=== PATIENT | male | born 1965 | race African-American/Black ===

== ENCOUNTER 2019-05-29 15:02 | Inpatient (IN) | payer MEDICAID, OTHER ==
[~2019-05-29] VITALS: Ht 185.4 cm; Wt 110.0 kg
[2019-05-29] MEDS ORDERED: SODIUM CHLORIDE 0.9% 1,000 ML IVB ONE (16:46)
[2019-05-29] MEDS ORDERED: CLINDAMYCIN 900MG IV 50 ML IV ONE (17:00)
[2019-05-29] MEDS ORDERED: VANCOMYCIN 1GM/250ML 250 ML IV ONE (17:00)
[2019-05-29 17:36] LABS: Basophils # (auto) 0 uL; Basophils % (auto) 0.3 % (0.0-2.0); Eosinophils # (auto) 0 uL; Lymphocytes # (auto) 1.1 uL; Red Cell Distribution Width 19.3 % (11.8-14.3)
[2019-05-29 17:39] LABS: Eosinophils % (auto) 0.1 % (0.0-7.0); Hematocrit 20.7 % (41.0-53.0); INR 1.06 (0.9-1.15); Lymphocytes % (auto) 8.8 % (10.0-50.0); Mean Corpuscular Hemoglobin 24.2 pg (28.0-32.0); Mean Corpuscular Hgb Conc. 30.7 g/dL (32.0-36.0); Mean Corpuscular Volume 78.9 fL (80.0-100.0); Monocytes % (auto) 8.1 % (0.0-12.0); Neutrophils # (auto) 10.5 uL; Neutrophils % (auto) 82.7 % (37.0-80.0); Platelet Count (auto) 492 10^3/uL (140-450); Red Blood Cells 2.62 10^6/uL (4.5-5.90); White Blood Cell 12.7 10^3/uL (4.4-10.8)
[2019-05-29 17:52] LABS: Hemoglobin 6.4 g/dL (13.5-17.5)
[2019-05-29 18:04] LABS: Albumin 1.9 g/dL (3.4-5.0); Calcium 8.2 mg/dL (8.5-10.1); Magnesium 2.1 mg/dL (1.6-2.6); Potassium 3.6 mmol/L (3.5-5.1)
[2019-05-29 18:12] LABS: BUN/Creatinine Ratio 10.3; Bilirubin, Total 0.4 mg/dL (0.2-1.0); CRP High Sensitivity 12.3 mg/dL (< 0.3)
[2019-05-29] MEDS ORDERED: DEXTROSE (50%) 50ML SYRG IV PRN (21:15)
[2019-05-29] MEDS ORDERED: VANCOMYCIN PER PHARMACY 0 MG IV SCH (21:15)
[2019-05-29] MEDS ORDERED: ONDANSETRON HCL 4 MG/2 ML VIAL IV PRN (21:15)
[2019-05-29] MEDS ORDERED: TEMAZEPAM 15 MG CAP PO PRN (21:15)
[2019-05-29] MEDS ORDERED: HYDROcodone-ACET 5/325MG TAB PO PRN (21:15)
[2019-05-29] MEDS: cloNIDine HCL 0.1 MG TAB PO PRN ×2 (22:59→23:09)
[2019-05-29] MEDS: FAMOTIDINE 20 MG TAB PO SCH (23:08)
[2019-05-29 23:38] LABS: Lactic Acid w/Reflex 2.1 mmol/L (0.4-2.0)
[2019-05-30] VITALS (11 sets, daily range): BP systolic 117–148; BP diastolic 63–97
[2019-05-30] MEDS: ACETAMINOPHEN 325 MG TAB PO PRN ×2 (01:00→20:26)
--- NOTE | 2019-05-30 01:10 | NUR ---
RECEIVED PATIENT FROM ER. REPORT RECEIVED FROM MATT ESCALONA. PATIENT SHOWING NO SIGN OF DISTRESS, SHORTNESS OF BREATH, AND PATIENT DENIES ANY PAIN AT THIS TIME. NEW IV STARTED IN LEFT HAND 22 GAUGE. LAB AT BEDSIDE AND LACTIC ACID DRAWN. BLOOD TRANSFUSION CONSENT SIGNED AT THIS TIME. BP ELEVATED AT 161/77. TEMP IS 100.5 HEART RATE IS 105. WILL ATTEMPT TO STABILIZE VITALS PRIOR TO BLOOD TRANSFUSION. EDUCATED PATIENT ON POC. PATIENT VERBALIZED UNDERSTANDING. BED LOWERED, CALL LIGHT WITHIN REACH, AND PATIENT WILL BE ROUNDED ON EVERY HOUR AND NEEDED.
--- NOTE | 2019-05-30 01:45 | NUR ---
CONTACTED HOSPITALIST RECEIVED SIGNATURE FOR BLOOD TRANSFUSION. REQUESTED ADDITIONAL MEDICATION FOR PATIENT'S ELEVATED BP OF 161/77. ORDERS RECEIVED. WILL PLACE ORDERS. WILL CONTINUE TO MONITOR PATIENT AT THIS TIME.
[2019-05-30] MEDS ORDERED: AML5T PO (01:52)
[2019-05-30] MEDS ORDERED: METF-370 PO (01:52)
[2019-05-30] MEDS ORDERED: METO-169 PO (01:52)
[2019-05-30] MEDS ORDERED: CLON0.1T PO (01:52)
--- NOTE | 2019-05-30 02:00 | NUR ---
PATIENT AT THIS TIME REFUSING DRESSING CHANGE ATTEMPTED TO REMOVE DRESSINGS AND TAKE WOUND CARE PHOTOS. PATIENT AT THIS TIME REFUSING STATING THAT IT HURTS AND WANTS IT LEFT ALONE. WILL ATTEMPT AT ANOTHER TIME.
--- NOTE | 2019-05-30 05:00 | NUR ---
DRESSING CHANGE PERFORMED WOUND CARE PHOTOS TAKEN AND CULTURE SWABS OBTAINED. DRESSINGS CHANGED AND PLACED WITH ABDOMINAL PADS AND KERLEX. PATIENT TOLERATED WELL. WILL CONTINUE TO MONITOR. WOUND CONSULT ALREADY IN PLACE. WILL INFORM DAYSHIFT RN.
[2019-05-30] MEDS: InsuLIN REG 1unit/0.01ml Soln (100units/ml) SC SCH ×5 (06:00→23:24)
[2019-05-30] MEDS: ACCU-CHEK COMFORT CURVE STRIP VI SCH ×5 (06:16→23:24)
[2019-05-30] MEDS: VANCOMYCIN 750mg/250ml 250 ML IV SCH ×2 (06:16→18:09)
--- NOTE | 2019-05-30 07:15 | NUR ---
Opening Shift Note Assumed care of patient, awake and alert. No S/S of distress/SOB or pain. Instructed on POC and to call for assist PRN, will continue to monitor for changes Q1hr and PRN. Bed set in lowest locked position with side rails up x 2 for safety and call light within reach.
--- NOTE | 2019-05-30 08:48 | NUR ---
LOGGING OPERATIONS INSPECTOR at bedside Angelica Blount, updated pt on POC, patient verbalized understanding.
[2019-05-30] MEDS: FAMOTIDINE 20 MG TAB PO SCH (09:14)
[2019-05-30] MEDS: cefTRIAXone 1GM/50ML D5W 50 ML IV SCH (09:14)
[2019-05-30 09:43] LABS: Hematocrit 21.6 % (41.0-53.0); Mean Corpuscular Hemoglobin 24.9 pg (28.0-32.0); Mean Corpuscular Hgb Conc. 31.3 g/dL (32.0-36.0); Mean Corpuscular Volume 79.7 fL (80.0-100.0); Platelet Count (auto) 401 10^3/uL (140-450); Red Blood Cells 2.71 10^6/uL (4.5-5.90); Red Cell Distribution Width 19.4 % (11.8-14.3); White Blood Cell 21.9 10^3/uL (4.4-10.8)
[2019-05-30 09:52] LABS: Hemoglobin 6.7 g/dL (13.5-17.5)
[2019-05-30 09:54] LABS: Basophils % (manual) 0 (0.0-2.0); Blast Cells 0; Eosinophils % (manual) 0 (0-7); Metamyelocytes % 0; Monocytes % (manual) 0 (0-12); Myelocytes % 0; Promyelocytes % 0; Reactive Lymphocytes 0
[2019-05-30 10:00] LABS: Albumin 1.6 g/dL (3.4-5.0); BUN/Creatinine Ratio 8.9; Calcium 7.2 mg/dL (8.5-10.1); Potassium 3.8 mmol/L (3.5-5.1)
[2019-05-30] MEDS ORDERED: ASPirin 81 mg TAB PO SCH (10:00)
[2019-05-30 10:05] LABS: Total Protein 6.8 g/dL (6.4-8.2)
[2019-05-30] MEDS: FUROSEMIDE 20 MG/2 ML VIAL IV SCH (10:32)
[2019-05-30] MEDS: METOPROLOL TARTRATE 25 MG TAB PO SCH ×2 (10:33→21:50)
[2019-05-30] MEDS: amLODIPine BESYLATE 5 MG TAB PO SCH (10:33)
[2019-05-30 12:07] LABS: Band Neutrophils % (manual) 1; Lymphocytes % (manual) 9 (10.0-50.0)
[2019-05-30 12:25] LABS: Urine WBC None Seen /hpf (0 - 3)
[2019-05-30 12:38] LABS: Urine Bacteria NONE SEEN /hpf (None Seen); Urine Blood Negative /uL (Negative); Urine Specific Gravity 1.007 (1.001-1.035)
[2019-05-30 13:02] LABS: Alcohol, Urine < 3.0 mg/dL (0-5); Amphetamine Screen, Urine NEGATIVE (NEGATIVE); Barbiturate Scree,Urine NEGATIVE (NEGATIVE); Benzodiazephine Screen, Urine NEGATIVE (NEGATIVE); Cannabinoid Screen, Urine NEGATIVE (NEGATIVE); Cocaine Screen, Urine NEGATIVE (NEGATIVE); Opiate Scree,Urine NEGATIVE (NEGATIVE); Phencyclidine Screen, Urine NEGATIVE (NEGATIVE)
--- NOTE | 2019-05-30 13:08 | NUR ---
WOUND CARE NOTE: Wound Care in to see patient per wound care request regarding "bilateral leg wounds" that are noted present on admission. Bedside nurse took photograph of patient's wounds upon admission for reference. Patient is 54 years old male with admitting diagnosis of Bilateral Infected Leg wounds. Patient with history of DM. Patient is resting in bed in Rm. 274A. He's awake, alert and oriented. He's in no stated pain at this time, however reports of pain to BLE wounds when touched. He's able to assist in turning and repositioning. Skin/wound assessment done with the assistance of orienting nurse, POLA Jaimes. Noted Rt. ([id number]) and Lt ([id number]) has large open, draining wounds. Wounds are in whole lower leg and larger to lateral and medial area. Anterior distal Rt lower leg wound has visible tendon. Wound beds are pale pink with yellow slough, dark red periwound, moderate seropurulent drainage noted with foul odor noted. Wound culture specimen reported sent to lab and in process. Patient reported that wound started "since July or August" but admitted to not seeing a doctor for it [facility] Cleansed BLE wounds with wound cleanser,patted dry with gauze, applied Thera honey gel/honey gauze, applied petrolatum gauze to exposed tendon to anterior distal Rt lower leg wound, covered with Opti lock and absorbent pads, wrapped with Kerlix and secured with tape. Patient tolerated well. Patient turned to his side to visualize sacrum and back, no pressure injury noted. Patient's education given regarding skin/ wound care, wound healing and skin protection measures. Patient verbalized understanding. Repositioned patient for comfort. Patient has pending surgical consult for BLE wounds. RECOMMENDATION: Daily/PRN dressing change to BLE wound per MD order, dietary consult,surgical consult, frequent turning and repositioning schedule as condition permits, redistribute pressure points with pillows, elevate BLE on pillows to help offload pressure, continue monitoring by wound care while patient is hospitalized. Addendum: 05/30/19 at 1715 by Dona Faulkner RN Amended: Links added.
--- NOTE | 2019-05-30 14:18 | NUR ---
MD at bedside Dr. Baird, updated pt on POC. MD aware of HGB 6.7.
[2019-05-30 15:07] LABS: % Iron Saturation 5.9 % (20-55)
--- NOTE | 2019-05-30 18:20 | NUR ---
Paged MD for change of isolation status. Awaiting call back, patient is positive for MRSA in nares.
--- NOTE | 2019-05-30 18:52 | NUR ---
New orders received from MD ALMAGUER, Dr. Baird, ordered Bactroban to be administered to both nares for 5 days.
--- NOTE | 2019-05-30 19:08 | NUR ---
Endorsed care to NOC RN.
--- NOTE | 2019-05-30 19:45 | NUR ---
PAGED DR. HERBERT. PT Hg IS AT 6.7 AFTER 1 UNIT FO BLOOD. Hg WAS AT 6.4. LEFT MESSAGE TO INFORM AND CALL BACK. AWAITING CALL BACK. NOTIFIED CHARGE, POLA SAUNDERS.
--- NOTE | 2019-05-30 21:30 | NUR ---
TALKED TO DR. SANDOVAL. NEW ORDER FOR 1 UNIT PACKED RED BLOOD CELLS.
[2019-05-30] MEDS: MUPIROCIN 2% OINT 15gm or 22gm EACHNOSTRI SCH (21:50)
[2019-05-30] MEDS: PANTOPRAZOLE 40 MG TAB PO SCH (21:51)
--- NOTE | 2019-05-30 21:51 | NUR ---
PT REFUSING MEDICATION AT THIS TIME. PT STATED HE "WAS NOT GOING TO TAKE ANY MEDICATION" I EDUCATED ON THE NEED FOR IT. PT VERBALIZED UNDERSTANDING. WILL CONTINUE TO MONITOR.
--- NOTE | 2019-05-30 21:52 | NUR ---
IRON CARRIER CALLED. PT HAD RUN OF RVR. PT ASYMPTOMATIC. BP 139/85, HR 86, 98%. PER DAY SHIFT HE HAD A RUN DURING THE DAY AND THEY SAID MD IS AWARE. WILL CONTINUE TO MONITOR.
--- NOTE | 2019-05-30 23:58 | NUR ---
BLOOD TRANSFUSION STARTED. PT VITAL SIGNS BP 129/90, HR 84, RR18, O2 99%. WILL CONTINUE TO MONITOR.
[2019-05-31] VITALS (7 sets, daily range): BP systolic 119–152; BP diastolic 71–91
--- NOTE | 2019-05-31 01:55 | NUR ---
BLOOD TRANSFUSION COMPLETED. NO REACTION NOTED.
[2019-05-31] MEDS: ACETAMINOPHEN 325 MG TAB PO PRN ×2 (03:50→15:06)
[2019-05-31 05:25] LABS: Basophils # (auto) 0 uL; Basophils % (auto) 0.2 % (0.0-2.0); Eosinophils # (auto) 0 uL; Hemoglobin 7.1 g/dL (13.5-17.5); Monocytes # (auto) 1.5 uL
[2019-05-31 05:29] LABS: Eosinophils % (auto) 0.1 % (0.0-7.0); Hematocrit 22.6 % (41.0-53.0); Lymphocytes % (auto) 4.8 % (10.0-50.0); Mean Corpuscular Hemoglobin 25.7 pg (28.0-32.0); Mean Corpuscular Hgb Conc. 31.3 g/dL (32.0-36.0); Mean Corpuscular Volume 82.2 fL (80.0-100.0); Monocytes % (auto) 7.1 % (0.0-12.0); Neutrophils # (auto) 18.1 uL; Neutrophils % (auto) 87.8 % (37.0-80.0); Platelet Count (auto) 380 10^3/uL (140-450); Red Blood Cells 2.75 10^6/uL (4.5-5.90); Red Cell Distribution Width 19.1 % (11.8-14.3); White Blood Cell 20.6 10^3/uL (4.4-10.8)
[2019-05-31 05:49] LABS: BUN/Creatinine Ratio 11.5; Calcium 7.6 mg/dL (8.5-10.1); Potassium 3.6 mmol/L (3.5-5.1)
[2019-05-31] MEDS: InsuLIN REG 1unit/0.01ml Soln (100units/ml) SC SCH ×4 (06:00→23:28)
[2019-05-31] MEDS: ACCU-CHEK COMFORT CURVE STRIP VI SCH ×4 (06:28→23:21)
--- NOTE | 2019-05-31 06:31 | NUR ---
THERE WAS NO VANCO IN THE FRIG. CALLED PHARMACY AND THEY SAID THEY WOULD SENT IT UP.
[2019-05-31] MEDS: VANCOMYCIN 750mg/250ml 250 ML IV SCH ×2 (06:41→18:44)
--- NOTE | 2019-05-31 07:38 | NUR ---
Opening Shift Note Assumed care of patient, awake and alert. No S/S of distress/SOB or pain. For safety the bed is locked and in the lowest position with 2 side rails up. Instructed on POC and to call for assist PRN, will continue to monitor for changes.
[2019-05-31] MEDS: cefTRIAXone 1GM/50ML D5W 50 ML IV SCH (09:53)
[2019-05-31] MEDS: FUROSEMIDE 20 MG/2 ML VIAL IV SCH (09:53)
[2019-05-31] MEDS: METOPROLOL TARTRATE 25 MG TAB PO SCH ×2 (09:54→22:23)
[2019-05-31] MEDS: PANTOPRAZOLE 40 MG TAB PO SCH ×2 (09:55→22:23)
[2019-05-31] MEDS: amLODIPine BESYLATE 5 MG TAB PO SCH (09:55)
[2019-05-31] MEDS: SODIUM FERR GLUC 62.5MG/5ML 125 MG in SODIUM CHL 0.9% 100 ML IV SCH (12:00)
[2019-05-31] MEDS: MUPIROCIN 2% OINT 15gm or 22gm EACHNOSTRI SCH ×2 (15:12→22:22)
--- NOTE | 2019-05-31 15:29 | NUR ---
Nutrition Consult/assessment Notes please see attached link for complete assessment Est. Needs BW 93 [id number] kcal (23-25 kcal/kgBW), 93-111 gms pro (1.0-1.2 gms/kgBW d/t wounds). Will continue to monitor pertinent labs and reassess nutrient need prn Addendum: 05/31/19 at [address] Amended: Links added.
[2019-05-31] MEDS ORDERED: CEFEPIME 1 GM in SODIUM CHL 0.9% 50 ML IV ONE (17:45)
[2019-06-01 05:08] VITALS: BP 152/94
[2019-06-01] MEDS: ACCU-CHEK COMFORT CURVE STRIP VI SCH ×3 (05:56→18:00)
[2019-06-01] MEDS: InsuLIN REG 1unit/0.01ml Soln (100units/ml) SC SCH ×3 (05:56→17:58)
[2019-06-01] MEDS: VANCOMYCIN 750mg/250ml 250 ML IV SCH ×2 (05:56→17:58)
[2019-06-01 06:25] LABS: Basophils # (auto) 0 uL; Basophils % (auto) 0.3 % (0.0-2.0); Eosinophils # (auto) 0.1 uL; Hemoglobin 7.4 g/dL (13.5-17.5)
[2019-06-01] MEDS: CEFEPIME 1 GM in SODIUM CHL 0.9% 50 ML IV SCH ×2 (06:26→17:41)
[2019-06-01 06:28] LABS: Eosinophils % (auto) 0.7 % (0.0-7.0); Hematocrit 22.8 % (41.0-53.0); Lymphocytes % (auto) 6.5 % (10.0-50.0); Mean Corpuscular Hemoglobin 25.8 pg (28.0-32.0); Mean Corpuscular Hgb Conc. 32.4 g/dL (32.0-36.0); Mean Corpuscular Volume 79.8 fL (80.0-100.0); Monocytes # (auto) 0.9 uL; Monocytes % (auto) 5.9 % (0.0-12.0); Neutrophils % (auto) 86.6 % (37.0-80.0); Platelet Count (auto) 353 10^3/uL (140-450); Red Blood Cells 2.86 10^6/uL (4.5-5.90); Red Cell Distribution Width 19.7 % (11.8-14.3)
[2019-06-01 06:43] LABS: BUN/Creatinine Ratio 12.2; Calcium 7.6 mg/dL (8.5-10.1); Potassium 3.6 mmol/L (3.5-5.1)
[2019-06-01] MEDS: SODIUM FERR GLUC 62.5MG/5ML 125 MG in SODIUM CHL 0.9% 100 ML IV SCH (11:10)
[2019-06-01] MEDS: amLODIPine BESYLATE 5 MG TAB PO SCH (11:10)
[2019-06-01] MEDS: POTASSIUM CHL 10 Meq TABLET PO SCH (11:11)
[2019-06-01] MEDS: METOPROLOL TARTRATE 25 MG TAB PO SCH ×2 (11:13→21:55)
[2019-06-01] MEDS: FUROSEMIDE 20 MG TAB PO SCH (11:13)
[2019-06-01] MEDS: PANTOPRAZOLE 40 MG TAB PO SCH ×2 (11:40→21:54)
[2019-06-01] MEDS: MUPIROCIN 2% OINT 15gm or 22gm EACHNOSTRI SCH ×2 (11:41→21:56)
[2019-06-01 12:36] VITALS: BP 160/91
--- NOTE | 2019-06-01 16:06 | NUR ---
Opening Shift Note Assumed care of patient, awake and alert. No S/S of distress/SOB or pain. For safety the bed is locked, in the lowest position with 2 side rails up. Instructed on POC and to call for assist PRN, will continue to monitor for changes.
--- NOTE | 2019-06-01 16:08 | NUR ---
Educated patient on multiple occasions through out shift on him refusing his dressing change to BLE. Pt states he "cant take the pain to let it get done". Offered pain medications before the dressing change but pt still refused. Family at bedside and encouraging pt to receive the care but he continues to refuse care.
[2019-06-01 16:24] VITALS: BP 151/86
--- NOTE | 2019-06-01 19:30 | NUR ---
RECEIVED REPORT FROM DAY RN POC REVIEWED, BED ALARM INTACT, CALL LIGHT WITHIN REACH REMINDED PT TO CALL FOR ASSISTANCE BEFORE GETTING OOB, PT VERBALIZED UNDERSTANDING
[2019-06-01 22:00] VITALS: BP 154/98
[2019-06-02] MEDS: ACCU-CHEK COMFORT CURVE STRIP VI SCH ×4 (00:12→18:17)
[2019-06-02] MEDS: InsuLIN REG 1unit/0.01ml Soln (100units/ml) SC SCH ×4 (00:12→18:16)
--- NOTE | 2019-06-02 01:29 | NUR ---
AWOKE RESTING COMFORTABLE CALL LIGHT WITHIN REACH BED ALARM INTACT
[2019-06-02 04:57] LABS: Basophils # (auto) 0 uL; Basophils % (auto) 0.3 % (0.0-2.0); Eosinophils # (auto) 0.1 uL; Eosinophils % (auto) 0.7 % (0.0-7.0); Hematocrit 24.5 % (41.0-53.0); Hemoglobin 7.7 g/dL (13.5-17.5); Lymphocytes % (auto) 7.4 % (10.0-50.0); Mean Corpuscular Hemoglobin 25.4 pg (28.0-32.0); Mean Corpuscular Hgb Conc. 31.3 g/dL (32.0-36.0); Mean Corpuscular Volume 81.2 fL (80.0-100.0); Monocytes % (auto) 7.3 % (0.0-12.0); Neutrophils # (auto) 11.5 uL; Neutrophils % (auto) 84.3 % (37.0-80.0); Platelet Count (auto) 375 10^3/uL (140-450); Red Blood Cells 3.02 10^6/uL (4.5-5.90); Red Cell Distribution Width 19.7 % (11.8-14.3); White Blood Cell 13.6 10^3/uL (4.4-10.8)
[2019-06-02 05:00] VITALS: BP 162/100
[2019-06-02 05:23] LABS: Calcium 7.7 mg/dL (8.5-10.1); Potassium 3.8 mmol/L (3.5-5.1)
[2019-06-02 05:26] LABS: BUN/Creatinine Ratio 11.5; Phosphorus 2.3 mg/dL (2.5-4.90)
[2019-06-02] MEDS: VANCOMYCIN 750mg/250ml 250 ML IV SCH ×2 (06:10→18:00)
[2019-06-02] MEDS: CEFEPIME 1 GM in SODIUM CHL 0.9% 50 ML IV SCH ×2 (06:40→18:17)
--- NOTE | 2019-06-02 07:34 | NUR ---
REPORT GIVEN TO AM NURSE POC REVIEWED
--- NOTE | 2019-06-02 07:50 | NUR ---
Opening Note Received report from operations supervisor 2nd shift RN. Patient is awake, alert and oriented x4. No signs or symptoms of distress noted at this time. Patient has dressing to bilateral lower extremities. Patient denies pain at this time. Reviewed plan of care with patient, patient verbalize understanding. Bed in low and locked position, call light within reach. Will continue to monitor Q1 hour and PRN.
[2019-06-02 09:00] VITALS: BP 139/90
[2019-06-02] MEDS: PANTOPRAZOLE 40 MG TAB PO SCH ×2 (10:08→21:54)
[2019-06-02] MEDS: POTASSIUM CHL 10 Meq TABLET PO SCH (10:08)
[2019-06-02] MEDS: MUPIROCIN 2% OINT 15gm or 22gm EACHNOSTRI SCH ×2 (10:10→21:54)
[2019-06-02] MEDS: FUROSEMIDE 20 MG TAB PO SCH (11:38)
[2019-06-02] MEDS: amLODIPine BESYLATE 5 MG TAB PO SCH (11:38)
[2019-06-02] MEDS: METOPROLOL TARTRATE 25 MG TAB PO SCH ×2 (11:38→21:54)
[2019-06-02] MEDS ORDERED: POTASSIUM PHOSPHATE 22 MEQ in SODIUM CHL 0.9% 100 ML IV ONE (12:00)
[2019-06-02] MEDS ORDERED: ERGOCALCIFEROL 50,000 UNIT(1.25MG) CAP PO SCH (12:00)
--- NOTE | 2019-06-02 12:00 | NUR ---
Wound Care to left lower extremity Wound care completed on patients left lower extremity. Patient states he needs to take a break before we complete wound care on the right lower extremity. Dressing removed from left lower extremity, area cleaned with wound cleanser and pat dry with sterile gauze. Honey gauze applied to area then covered with abd pads and wrapped in Kerlix. Will continue to monitor Q1 hour and PRN.
[2019-06-02 13:00] VITALS: BP 149/100
[2019-06-02] MEDS: SODIUM FERR GLUC 62.5MG/5ML 125 MG in SODIUM CHL 0.9% 100 ML IV SCH (15:45)
[2019-06-02 16:45] VITALS: BP 163/101
--- NOTE | 2019-06-02 18:00 | NUR ---
Wound Care to right lower extremity Wound care completed on patients right lower extremity. Dressing removed from right lower extremity, area cleaned with wound cleanser and pat dry with sterile gauze. Honey gauze applied to area then covered with abd pads and wrapped in Kerlix. Will continue to monitor Q1 hour and PRN.
--- NOTE | 2019-06-02 18:26 | NUR ---
IV Insertion IV access obtained, via clean sterile technique by inserting 22 gauge catheter after one attempt to left wrist. IV secured properly. No trauma to site. Patient tolerated well. IV removed from right forearm, catheter intact intact, pressure dressing applied. Patient tolerated well. Will continue to monitor Q1 hour and PRN.
[2019-06-02] MEDS: cloNIDine HCL 0.1 MG TAB PO PRN (18:41)
--- NOTE | 2019-06-02 19:24 | NUR ---
Closing Note Report given to night auditor RN. No signs or symptoms of distress noted at this time.
[2019-06-02 22:00] VITALS: BP 127/80
[2019-06-03] MEDS: ACCU-CHEK COMFORT CURVE STRIP VI SCH ×4 (00:18→18:20)
[2019-06-03] MEDS: InsuLIN REG 1unit/0.01ml Soln (100units/ml) SC SCH ×4 (00:19→18:20)
[2019-06-03 05:00] VITALS: BP 143/77
[2019-06-03 05:37] LABS: Basophils # (auto) 0 uL; Eosinophils # (auto) 0.1 uL; Hemoglobin 7.1 g/dL (13.5-17.5); Monocytes # (auto) 1.1 uL; White Blood Cell 12.6 10^3/uL (4.4-10.8)
[2019-06-03 05:41] LABS: Basophils % (auto) 0.2 % (0.0-2.0); Eosinophils % (auto) 0.6 % (0.0-7.0); Hematocrit 22.5 % (41.0-53.0); Lymphocytes # (auto) 1.2 uL; Lymphocytes % (auto) 9.5 % (10.0-50.0); Mean Corpuscular Hemoglobin 26.3 pg (28.0-32.0); Mean Corpuscular Hgb Conc. 31.6 g/dL (32.0-36.0); Mean Corpuscular Volume 83.2 fL (80.0-100.0); Monocytes % (auto) 8.8 % (0.0-12.0); Neutrophils # (auto) 10.2 uL; Neutrophils % (auto) 80.9 % (37.0-80.0); Platelet Count (auto) 357 10^3/uL (140-450); Red Cell Distribution Width 19.8 % (11.8-14.3)
[2019-06-03 05:52] LABS: BUN/Creatinine Ratio 11.7; Calcium 7.5 mg/dL (8.5-10.1); Potassium 3.4 mmol/L (3.5-5.1)
[2019-06-03] MEDS: VANCOMYCIN 750mg/250ml 250 ML IV SCH ×2 (06:25→18:20)
--- NOTE | 2019-06-03 07:30 | NUR ---
Opening Shift Note Assumed care of patient, awake and alert. No S/S of distress/SOB, no pain noted or reported. Updated on POC and instructed to call for assistance as needed, patient verbalized understanding. Bed locked in lowest position, side rails up x2, call light within reach. Will continue to monitor for changes Q1hr and PRN.
[2019-06-03] MEDS ORDERED: LORazepam 0.5 MG TAB PO ONE (08:45)
[2019-06-03 08:49] VITALS: BP 130/80
[2019-06-03] MEDS: CEFEPIME 1 GM in SODIUM CHL 0.9% 50 ML IV SCH ×2 (09:01→20:24)
[2019-06-03] MEDS: FUROSEMIDE 20 MG TAB PO SCH (09:08)
[2019-06-03] MEDS: METOPROLOL TARTRATE 25 MG TAB PO SCH ×2 (09:08→22:11)
[2019-06-03] MEDS: PANTOPRAZOLE 40 MG TAB PO SCH ×2 (09:08→22:11)
[2019-06-03] MEDS: POTASSIUM CHL 10 Meq TABLET PO SCH (09:08)
[2019-06-03] MEDS: amLODIPine BESYLATE 5 MG TAB PO SCH (09:09)
[2019-06-03] MEDS: MUPIROCIN 2% OINT 15gm or 22gm EACHNOSTRI SCH ×2 (09:09→22:10)
--- NOTE | 2019-06-03 09:50 | NUR ---
PATIENT REFUSED WOUND DRESSING CHANGED BILATERAL LEG DRESSINGS DRY AND INTACT WITH VERY MINIMAL DRAINAGE, PATIENT STATES TO LEAVE THEM ALONE FOR NOW.
--- NOTE | 2019-06-03 11:00 | NUR ---
Right Lower Leg Wound Care Right lower extremity dressing with moderate saturation of blood after using bedside commode. Dressing removed, area cleaned with wound cleanser and patted dry with sterile gauze. Therahoney and petroleum gauze applied to wound bed, as ordered, then covered with abd pads and wrapped in Kerlix. Patient tolerated well. Refuses dressing change to left lower extremity as dressing is dry and intact. Addendum: 06/03/19 at 1915 by Kym Potter RN CORRECTION LEFT LOWER LEG, PATIENT REFUSED RIGHT LEG.
[2019-06-03] MEDS: POTASSIUM CHL 20 Meq TABLET PO SCH (12:11)
[2019-06-03 13:00] VITALS: BP 158/91
[2019-06-03] MEDS: SODIUM FERR GLUC 62.5MG/5ML 125 MG in SODIUM CHL 0.9% 100 ML IV SCH (13:00)
--- NOTE | 2019-06-03 13:14 | NUR ---
PAGED DR. Brea MORALES REGARDING SURGICAL CONSULT CLARIFICATION.
--- NOTE | 2019-06-03 13:41 | NUR ---
Assessment Pt is a 54 yr old alert and oriented male. Prior to admit, pt was living with some friends and states that he was working on establishing [facility] services. Pt's daughter, Lashell, is his emergency contact and her number is on file. Prior to admit, pt was independent with ADL's, and walking but stated that he can no longer walk on his own due to his wounds. Pt would benefit from a w/c or walker in the home to assist with ambulation. Pt stated that he was receiving services for wound care through [facility]", and that his wound care provider recommended that he goes to the hospital because his wounds are not healing. Pt is type 2 diabetic and states that he takes medications to regulate his blood sugar. Pt stated that he has never been to a SNF but that he would like to go there for wound care and PT. Pt did not want the SW discussing this with the Dr. or nurse until he was able to speak with them. Pt currently does not get any income. Pt was self-employed and stated that he is "working on getting things settled." SW educated the pt on the option of applying for steiner assistance and/or food stamps at the [facility] office. Pt stated that he would figure it out. Pt stated that he is not interested in AD at this time. Further needs will be assessed closer to d/c. Addendum: 06/03/19 at 1355 by STEFFEN REDDING Amended: Links added.
--- NOTE | 2019-06-03 15:03 | NUR ---
Nutrition Follow-up Notes Wt.: 91.3 kg Pt was sleeping with no family by bedside. per records pt with osteomyelitis and active sx consult. pt with no distress noted currently on CCHO 60 gm/meal diet with adequate PO of 75% x 4 per RN doc Est. Needs BW 93 [id number] kcal (23-25 kcal/kgBW), 93-111 gms pro (1.0-1.2 gms/kgBW d/t wounds). Will continue to monitor pertinent labs and reassess nutrient need prn Labs: CREAT 1.37 H, CA 7.5 L. rest labs wnl for today Skin: Gerard scale 16, mod risk wounds per RN doc GI: Pt had 2 BM this morning per revenue specialist. PES: Altered nutrition related lab values r/t current/chronic medical condition aeb elev creat, hyperglycemia, hypocalcemia Will continue to monitor PO intake, skin status, pertinent labs and weight trend. F/u in 3-5 days. Rec.: 1.) consider MVI/C bid. 2) refer to CDE on DC. 3) consider CCHO 75 gm as needs are higher. 4) continue current plan of care
[2019-06-03 17:00] VITALS: BP 143/91
--- NOTE | 2019-06-03 18:10 | NUR ---
IV removal IV DC'd with clean sterile technique, catheter fully intact. Pressure dressing applied to site. Patient tolerated well. NOTE: [LEFT WRIST PAINFUL AND LEAKING]
--- NOTE | 2019-06-03 18:30 | NUR ---
IV insertion IV access obtained, via clean sterile technique by inserting 22 gauge catheter at left forearm after 2 attempt(s). IV secured properly. No trauma to site. Patient tolerated well.
--- NOTE | 2019-06-03 18:42 | NUR ---
Patient Rounds Patient resting in bed watching television, no s/s of distress or SOB. Will endorse care to warehouse worker 2nd shift RN.
[2019-06-03 22:00] VITALS: BP 160/92
[2019-06-04] MEDS: ACCU-CHEK COMFORT CURVE STRIP VI SCH ×5 (00:07→23:39)
[2019-06-04] MEDS: cloNIDine HCL 0.1 MG TAB PO PRN (00:20)
[2019-06-04 05:00] VITALS: BP 139/80
--- NOTE | 2019-06-04 05:21 | NUR ---
REFUSED WOUND CARE AT THIS TIME.
[2019-06-04 05:25] LABS: BUN/Creatinine Ratio 11.9; Calcium 7.8 mg/dL (8.5-10.1); Potassium 3.6 mmol/L (3.5-5.1)
[2019-06-04] MEDS: InsuLIN REG 1unit/0.01ml Soln (100units/ml) SC SCH ×5 (05:25→23:39)
[2019-06-04] MEDS: VANCOMYCIN 750mg/250ml 250 ML IV SCH ×2 (05:49→18:06)
[2019-06-04] MEDS: CEFEPIME 1 GM in SODIUM CHL 0.9% 50 ML IV SCH ×2 (06:52→18:52)
--- NOTE | 2019-06-04 07:30 | NUR ---
Opening Shift Note Assumed care of patient, awake and alert. No S/S of distress/SOB or pain. Instructed on POC and to call for assist PRN, will continue to monitor for changes Q1hr and PRN.
[2019-06-04 08:49] VITALS: BP 144/83
[2019-06-04] MEDS: POTASSIUM CHL 20 Meq TABLET PO SCH (10:17)
[2019-06-04] MEDS: PANTOPRAZOLE 40 MG TAB PO SCH ×2 (10:17→22:13)
[2019-06-04] MEDS: FUROSEMIDE 20 MG TAB PO SCH (10:18)
[2019-06-04] MEDS: METOPROLOL TARTRATE 25 MG TAB PO SCH ×2 (10:18→22:13)
[2019-06-04] MEDS: MUPIROCIN 2% OINT 15gm or 22gm EACHNOSTRI SCH ×2 (10:19→22:13)
[2019-06-04] MEDS: amLODIPine BESYLATE 5 MG TAB PO SCH (10:19)
--- NOTE | 2019-06-04 11:00 | NUR ---
Rounds Patient awake and alert. No S/S of distress/SOB or pain. Will continue to monitor changes q1hr and PRN. PT ASSISTED TO BSC. BM X 1 TODAY.
[2019-06-04 13:00] VITALS: BP 150/94
[2019-06-04 17:00] VITALS: BP 151/89
--- NOTE | 2019-06-04 17:00 | NUR ---
PT REFUSED WOUND CARE PT INFORMED THAT WOUND CARE NEEDS TO BE DONE. PT STATED THAT HE DOESN'T WANT IT RIGHT NOW AND WOULD LIKE TO GET IT DONE TONIGHT BECAUSE IT WILL HURT. PT INFORMED THAT WE WILL START SOAKING THE DRESSING NOW TO PREVENT IT FROM STICKING ON HIS SKIN DURING DRESSING CHANGE. PT CAN ALSO GET PAIN MEDICATIONS BUT PT STILL REFUSED.
--- NOTE | 2019-06-04 18:32 | NUR ---
CLOSING NOTES PT RESTING IN BED, EATING DINNER. DENIES PAIN OR SOB. NO DISTRESS NOTED.
--- NOTE | 2019-06-04 20:00 | NUR ---
ASSUMED CARE, PT. AWAKE, NO C/O PAIN, DRESSING ON LEGS DRY AND INTACT, PT. REFUSED TO CHANGE DRESSING.
[2019-06-04 22:00] VITALS: BP 136/76
[2019-06-05 05:00] VITALS: BP 145/77
--- NOTE | 2019-06-05 05:15 | NUR ---
v/s stable, no c/o pain, pt. refused dressing change and bed linen change.
[2019-06-05] MEDS: ACCU-CHEK COMFORT CURVE STRIP VI SCH ×3 (05:16→19:03)
[2019-06-05] MEDS: InsuLIN REG 1unit/0.01ml Soln (100units/ml) SC SCH ×3 (05:16→19:04)
[2019-06-05] MEDS: CEFEPIME 1 GM in SODIUM CHL 0.9% 50 ML IV SCH (06:01)
[2019-06-05 07:29] LABS: Albumin 1.7 g/dL (3.4-5.0); Calcium 8.4 mg/dL (8.5-10.1)
[2019-06-05 07:45] LABS: BUN/Creatinine Ratio 12.3; Bilirubin, Total 0.3 mg/dL (0.2-1.0); Phosphorus 2.4 mg/dL (2.5-4.90); Total Protein 7.5 g/dL (6.4-8.2)
[2019-06-05 08:49] VITALS: BP 153/79
--- NOTE | 2019-06-05 11:17 | NUR ---
Dr. Yost at bedside Okay to discharge, will follow up outpatient. Orders received, read back and verified. Will input.
[2019-06-05] MEDS: amLODIPine BESYLATE 5 MG TAB PO SCH (11:28)
[2019-06-05] MEDS: POTASSIUM CHL 20 Meq TABLET PO SCH (11:29)
[2019-06-05] MEDS: PANTOPRAZOLE 40 MG TAB PO SCH ×2 (11:29→23:02)
[2019-06-05] MEDS: FUROSEMIDE 20 MG TAB PO SCH (11:29)
[2019-06-05] MEDS: CEFTRIAXONE SODIUM 2 GM in D5W 5% 50 ML IV SCH (11:30)
[2019-06-05] MEDS: MUPIROCIN 2% OINT 15gm or 22gm EACHNOSTRI SCH ×2 (11:30→23:01)
[2019-06-05] MEDS: METOPROLOL TARTRATE 25 MG TAB PO SCH ×2 (11:30→23:02)
[2019-06-05 12:40] VITALS: BP 146/82
--- NOTE | 2019-06-05 13:09 | NUR ---
Dr. Newby at bedside. Okay to discharge from Nephro standpoint.
[2019-06-05] MEDS: VANCOMYCIN 750mg/250ml 250 ML IV SCH (14:02)
--- NOTE | 2019-06-05 16:45 | NUR ---
Changed dressing to the right lower leg per orders. Patient refused pain medication prior, tolerated okay, but patient is in significant pain during dressing change. 40 minutes spent changing right leg dressing, was not able to change the left lower leg dressing. Will communicate this to NOC shift RN.
[2019-06-05 16:48] VITALS: BP 162/87
--- NOTE | 2019-06-05 19:30 | NUR ---
Opening Shift Note Assumed care of patient, awake and alert. No S/S of distress/SOB. Instructed on POC and to call for assist PRN, patient verbalized understanding, call light within reach, will continue to monitor for changes Q1hr and PRN.
[2019-06-05 22:00] VITALS: BP 148/61
--- NOTE | 2019-06-05 22:30 | NUR ---
Dressing to left leg wound changed, spent 45minutes changing it, patient tolerated well
[2019-06-06] MEDS: ACCU-CHEK COMFORT CURVE STRIP VI SCH ×5 (00:25→23:59)
[2019-06-06 05:00] VITALS: BP 155/96
[2019-06-06] MEDS: InsuLIN REG 1unit/0.01ml Soln (100units/ml) SC SCH ×4 (06:00→18:00)
[2019-06-06] MEDS: VANCOMYCIN 750mg/250ml 250 ML IV SCH (06:27)
[2019-06-06 06:40] LABS: Albumin 1.6 g/dL (3.4-5.0); BUN/Creatinine Ratio 10.4; Calcium 8.2 mg/dL (8.5-10.1); Potassium 4.2 mmol/L (3.5-5.1)
[2019-06-06 06:42] LABS: Bilirubin, Total 0.3 mg/dL (0.2-1.0); Total Protein 7.7 g/dL (6.4-8.2)
--- NOTE | 2019-06-06 07:00 | NUR ---
IV on LFA out and painful per patient, removed with catheter intact, patient tolerated well IV insertion IV access obtained, via clean sterile technique by inserting 22 gauge catheter at RFA after [] attempt(s). IV secured properly. No trauma to site. Patient tolerated well. NOTE: []
--- NOTE | 2019-06-06 08:20 | NUR ---
Opening Note Assumed care of patient. He is A & O x4, no s/s of distress. No complaints at this time. POC discussed with patient. Will continue to monitor Q1h and PRN. Bed is in lowest, locked position, call light within reach, bed rails x2, bed alarm on.
[2019-06-06 08:49] VITALS: BP 163/99
--- NOTE | 2019-06-06 08:57 | NUR ---
Isis from [facility] Spoke to patient, per Isis, patient is going to be moving to [facility] upon discharge, does not want to go to a SNF.
[2019-06-06] MEDS: MUPIROCIN 2% OINT 15gm or 22gm EACHNOSTRI SCH ×2 (09:38→22:46)
[2019-06-06] MEDS: CEFTRIAXONE SODIUM 2 GM in D5W 5% 50 ML IV SCH (09:39)
[2019-06-06] MEDS: PANTOPRAZOLE 40 MG TAB PO SCH ×2 (09:39→22:46)
[2019-06-06] MEDS: METOPROLOL TARTRATE 25 MG TAB PO SCH ×3 (09:40→22:46)
[2019-06-06] MEDS: FUROSEMIDE 20 MG TAB PO SCH (09:41)
[2019-06-06] MEDS: amLODIPine BESYLATE 5 MG TAB PO SCH (09:41)
[2019-06-06] MEDS: POTASSIUM CHL 20 Meq TABLET PO SCH (09:56)
[2019-06-06 13:00] VITALS: BP 165/97
--- NOTE | 2019-06-06 14:32 | NUR ---
Nutrition Follow-up Notes Wt.: 94.1 kg as of yesterday. Pt's in isolation room, asleep, no immediate family member at bedside during rounds this morning. Pt's no signs of distress noted earlier, currently on CCHO 60 gms/meal diet with adequate PO intake aeb 90% ave. consumed meals (x6) in last 2.5 days. Noted pt's for active Surgical and Podiatry consults. Est. Needs BW 93 [id number] kcal (23-25 kcal/kgBW), 93-111 gms pro (1.0-1.2 gms/kgBW d/t wounds). Will continue to monitor pertinent labs and reassess nutrient need prn Labs: Gluc 135 L, Cr 1.35 H Cr 1.35 H, Ca 8.2 L, Alb 1.6 L Skin: Gerard scale 18, mod risk, pt's left right legs stasis ulcer per subway train driver. Pls refer to latest cylinder die machine operator's notes for further details re: tx plans. GI: Pt had 8x BM yesterday per subway train driver. PES: Altered nutrition related lab values r/t current/chronic medical condition aeb elev creat, hyperglycemia, hypocalcemia Will continue to monitor PO intake, skin status, pertinent labs and weight trend. F/u in 3 to 5 days. Rec.: 1.) Consider Consistent High Carb: 75 gms/meal diet. 2.) If Albumin continues trending down with improved renal labs, consider Prostat 1 pkt BID. 3.) Consider daily MVI with minerals and Asc acid 500 mgs BID. 4.) Refer pt to CDE/RD for further nutrition education and weight monitoring upon discharge. 5.) Continue current plan of care.
--- NOTE | 2019-06-06 16:11 | NUR ---
Spoke to Dr. Villasenor Patient okay to discharge in the morning. Follow up with Dr. Yots in 2 to 3 weeks. Orders received, read back and verified.
[2019-06-06 17:00] VITALS: BP 149/88
--- NOTE | 2019-06-06 19:35 | NUR ---
Opening Shift Note Assumed care of patient, eyes closed, respirations even and unlabored, appears asleep. Patient awakens to name and touch. No S/S of distress/SOB or pain. Bed in lowest locked position, side rails up x2, call light within reach. Dressing to bilateral lower extremities noted to be clean, dry, and intact. Instructed on POC and to call for assist PRN, will continue to monitor for changes Q1hr and PRN.
--- NOTE | 2019-06-06 21:45 | NUR ---
Temperature Patient's temperature noted to be 99.9 degrees Fahrenheit during vital sign check. Temperature of room cooled and blankets removed. Will recheck and continue to monitor.
[2019-06-06 22:00] VITALS: BP 151/97
--- NOTE | 2019-06-06 22:00 | NUR ---
Regarding bilateral leg dressings Minimal amount of bright red blood noted to patient's bottom of patient's dressing to right leg after assisting patient from bedside commode back to bed. Patient refusing to have area assessed or wound care done to either leg, states that it "hurts too much". Offered patient pain medication before changing dressing at a later time during shift, patient refused. Patient educated on importance of changing dressings as ordered, patient verbalized understanding, continues to refuse. Will try again and continue to monitor patient.
--- NOTE | 2019-06-06 22:45 | NUR ---
Regarding temperature Patient's temperature checked again, now 90.2 degrees Fahrenheit orally. No s/s of distress. Will continue care.
--- NOTE | 2019-06-06 23:00 | NUR ---
Refusing Vancomycin Trough Patient refusing to have lab draw blood for Vancomycin trough at this time. Patient amenable to have trough drawn with morning labs. pet care technician aware, will speak with pharmacist and continue care.
--- NOTE | 2019-06-07 00:18 | NUR ---
Spoke with reclamation furnace operator pharmacy, made aware patient refusing Vancomyacin trough. Per pharmacist, trough and Vancomyacin dose will be "scheduled later on this morning" with the morning labs. Will continue to monitor patient.
[2019-06-07 05:34] VITALS: BP 158/96
[2019-06-07 06:32] LABS: Potassium 4.4 mmol/L (3.5-5.1)
[2019-06-07 06:39] LABS: BUN/Creatinine Ratio 12.2; Calcium 8.4 mg/dL (8.5-10.1)
[2019-06-07] MEDS: ACCU-CHEK COMFORT CURVE STRIP VI SCH ×3 (06:46→12:59)
[2019-06-07] MEDS: VANCOMYCIN 750mg/250ml 250 ML IV SCH ×2 (06:46→07:00)
--- NOTE | 2019-06-07 06:58 | NUR ---
Regarding wound care, blood sugar check and Vancomycin and closing note Patient lying in bed awake and alert. Bed in lowest locked position, side rails up x2, call light within reach. This RN offered to change patient's dressings as ordered, patient refusing stating, "I don't want to do it now." Patient again educated on importance of changing dressings as ordered, patient again verbalized understanding and again continues to refuse. Patient also refusing blood sugar check and Vancomycin at this time. Patient educated on importance of both for patient's plan of care, patient continuing to refuse at this time. No s/s of distress. Will inform dayshift RN and endorse care.
[2019-06-07] MEDS: InsuLIN REG 1unit/0.01ml Soln (100units/ml) SC SCH ×3 (07:00→12:00)
--- NOTE | 2019-06-07 07:45 | NUR ---
Opening Note Received report from fast food shift supervisor RN. Patient is awake, alert and oriented x4. No signs or symptoms of distress noted at this time. Patient has dressing to bilateral lower extremities. Patient denies pain at this time. Reviewed plan of care with patient, patient verbalize understanding. Bed in low and locked position, call light within reach. Will continue to monitor Q1 hour and PRN.
[2019-06-07 08:49] VITALS: BP 155/91
[2019-06-07] MEDS: CEFTRIAXONE SODIUM 2 GM in D5W 5% 50 ML IV SCH (10:00)
[2019-06-07] MEDS ORDERED: amLODIPine BESYLATE 5 MG TAB PO SCH (10:00)
--- NOTE | 2019-06-07 10:00 | NUR ---
MRSA swab collected and sent to lab
--- NOTE | 2019-06-07 11:00 | NUR ---
Patient refusing dressing change at this time. Patient refusing dressing change at this time. Patient requesting to have right lower extremity dressing reinforced. Kerlix applied to right lower extremity. Will continue to monitor.
[2019-06-07] MEDS: MUPIROCIN 2% OINT 15gm or 22gm EACHNOSTRI SCH (11:13)
[2019-06-07] MEDS: FUROSEMIDE 20 MG TAB PO SCH (11:15)
[2019-06-07] MEDS: PANTOPRAZOLE 40 MG TAB PO SCH (11:15)
[2019-06-07] MEDS: POTASSIUM CHL 20 Meq TABLET PO SCH (11:15)
[2019-06-07] MEDS: METOPROLOL TARTRATE 25 MG TAB PO SCH (11:16)
--- NOTE | 2019-06-07 11:57 | NUR ---
Patient refusing discharge wound photos Patient states he does not want us to "touch his legs." Unable to take wound photos with dressing present on bilateral lower extremities. Will continue to monitor Q1 hour and PRN.
--- NOTE | 2019-06-07 12:00 | NUR ---
IV REMOVED RIGHT FOREARM IV REMOVED. IV CATHETER INTACT. PRESSURE DRESSING APPLIED TO SITE. Signed: 06/07/19 at 1226 by JUAN ANTONIO POWERS <Co-Signature Required> Co-Signed: 06/07/19 at 1226 by KADEN WALTON RN RN
[2019-06-07 13:00] VITALS: BP 139/93
--- NOTE | 2019-06-07 14:27 | NUR ---
Discharge Discharge instructions given as ordered. Encourage to follow up with PMD as instructed. All questions and concerns addressed. Patient verbalized understanding. Medication reconciliation form completed and copy given to patient. environmental monitoring specialist removed and sent back to ICU. Patient taken down to private vehicle, via wheelchair, accompanied by staff and family member, with all personal belongings. No signs or symptoms of distress noted at this time.
[2019-06-07] MEDS ORDERED: FERROUS SULFATE 325 MG TAB PO SCH (18:00)
[2019-06-08] MEDS ORDERED: VANCOMYCIN 750mg/250ml 250 ML IV SCH (07:00)
--- NOTE | 2019-06-09 11:06 | NUR ---
CALLED IN PRESCRIPTION TO [facility] [address] [facility] [address] FOR BACTRIM DS ONE PO BID X2 WEEKS /DR. MILLAN. PATIENT'S PHONE [phone] PATIENT NOTIFIED TO SPEECH AND LANGUAGE SPECIALIST RX.
== END 2019-06-07 14:27 | disposition home or self-care (01) | DRG 383 ==
LOC: EDBD 15:02 → ER 15:08 → OVERFLOW 15:09 → EAST 23:11 → TELE-WESTW 05-30 01:02
PROVIDERS: ADMIT Nurse Practitioner; ATTEND Hospitalist
PROC: 30233N1 Transfusion of Nonautologous Red Blood Cells into Peripheral Vein, Percutaneous Approach (ICD-10-PCS; principal; 2019-05-30)
DX: L03.115 Cellulitis of right lower limb (principal); I21.4 Non-ST elevation (NSTEMI) myocardial infarction; N17.9 Acute kidney failure, unspecified; E44.0 Moderate protein-calorie malnutrition; E11.622 Type 2 diabetes mellitus with other skin ulcer; L97.926 Non-pressure chronic ulcer of unspecified part of left lower leg with bone involvement without evidence of necrosis; L97.916 Non-pressure chronic ulcer of unspecified part of right lower leg with bone involvement without evidence of necrosis; E11.21 Type 2 diabetes mellitus with diabetic nephropathy; I13.0 Hypertensive heart and chronic kidney disease with heart failure and stage 1 through stage 4 chronic kidney disease, or unspecified chronic kidney disease; I50.30 Unspecified diastolic (congestive) heart failure; L03.116 Cellulitis of left lower limb; E11.22 Type 2 diabetes mellitus with diabetic chronic kidney disease; G47.00 Insomnia, unspecified; B96.4 Proteus (mirabilis) (morganii) as the cause of diseases classified elsewhere; B95.62 Methicillin resistant Staphylococcus aureus infection as the cause of diseases classified elsewhere; B96.89 Other specified bacterial agents as the cause of diseases classified elsewhere; D63.1 Anemia in chronic kidney disease; E55.9 Vitamin D deficiency, unspecified; D72.829 Elevated white blood cell count, unspecified; N18.9 Chronic kidney disease, unspecified; D50.9 Iron deficiency anemia, unspecified; E11.65 Type 2 diabetes mellitus with hyperglycemia; E83.39 Other disorders of phosphorus metabolism; E87.6 Hypokalemia; Z86.73 Personal history of transient ischemic attack (TIA), and cerebral infarction without residual deficits; Z91.19 Patient's noncompliance with other medical treatment and regimen; Z80.42 Family history of malignant neoplasm of prostate; Z82.49 Family history of ischemic heart disease and other diseases of the circulatory system; Z79.899 Other long term (current) drug therapy; Z68.32 Body mass index [BMI] 32.0-32.9, adult
CPT/HCPCS: 36415; 71045; 73700; 76775; 78315; 80048; 80053; 80202; 80307; 81001; 82270; 82306; 82962; 83036; 83540; 83550; 83605; 83735; 83880; 83970; 84100; 84484; 84550; 85007; 85025; 85027; 85610; 85730; 86141; 86850; 86900; 86901; 86920; 87040; 87077; 87081; 87186; 87205; 93005; 93306; 93926; 96361; 96365; G0378; J0696; J1815; J3490; J7060